=== PATIENT | male | born 2000 | race African-American/Black ===

== ENCOUNTER 2022-03-21 11:49 | Emergency (ER) | payer OTHER, SELFPAY ==
[2022-03-21 11:52] VITALS: BP 134/74; PULSE 86; RESP 16; TEMP 37.3; O2SAT 96
[2022-03-21 11:57] VITALS: BMI 21.9
--- NOTE | 2022-03-21 11:57 | ED_ITS ---
HPI - Weakness General: Chief complaint: Weakness Stated complaint: sore throat, body aches Time Seen by Provider: 03/21/22 11:57 History of Present Illness: Patient is in today for sore throat, body aches, chills. He reports that approximately 2 days ago he started having a sore thr oat and she has been feeling worse since that time. He reports that he has not been around any sick contacts that he knows of. He does have some nasal congestion and drainage. He has not checked his temperature but feels like he has been getting really hot and sweaty in the night. Associated symptoms: Reports chills and fever(s) (Feeling feverish has not sherry cked temp); Denies chest pain, dysuria, headache(s), nausea or vomiting Review of Systems Const: Reports: fever(s) (Feeling feverish has not checked temp), chills, body aches and fatigue Eyes: Denies: change in vision or blurry vision ENMT: Reports: throat pain, odynophagia, ear or mastoid pain (Ear pressure bilateral), nasal discharge and nasal congestion Card: Denies: chest pain or palpitations Resp: Denies: dyspnea, productive cough, non-productive cough or wheezing GI: Denies: abdominal pain, nausea or vomiting : Denies: flank pain, difficulty urinating, dysuria, urinary frequency or urinary urgency Musc: Reports: other (Body aches) Neuro: Denies: headache(s) Physical Exam HENMT: COMMON NORMALS: external ears normal, EAC's normal, TM's normal bilaterally and Normal external nose present FACE & SINUS: normal facial exam and sinuses nontender NOSE: Normal external nose present, Normal nares present, Abnormal mucous membranes and turbinates present erythematous and Nasal discharge present clear EXTERNAL EAR: Yes external ears normal EXTERNAL AUDITORY CANAL: EAC's normal TYMPANIC MEMBRANE: TM's normal bilaterally THROAT: posterior oropharynx abnormal erythema and postnasal drainage Eye: COMMON NORMALS: Equal, round and reactive pupils present, EOMs intact bilaterally and conjunctivae normal CONJUNCTIVA: Yes conjunctivae normal PUPIL: Yes Equal, round and reactive pupils present Lymph: LYMPHATIC: lymphadenopathy (Bilateral anterior cervical) Resp: COMMON NORMALS: normal respiratory effort and clear to auscultation bilaterally AUSCULTATION: clear to auscultation bilaterally Cardio: COMMON NORMALS: regular rate, regular rhythm, S1 normal heart sound present, S2 normal heart sound present and No murmurs present (Cardio) RATE: regular rate RHYTHM: regular rhythm HEART SOUNDS: S1 normal heart sound present and S2 normal heart sound present Course Vital Signs: Vital signs: Vital Signs Temperature 99.2 F 03/21/22 11:52 Pulse Rate 86 03/21/22 11:52 Respiratory Rate 16 03/21/22 11:52 Blood Pressure 134/74 03/21/22 11:52 Pulse Oximetry 96 03/21/22 11:52 Oxygen Delivery Me thod 03/21/22 11:52 MDM - Weakness Medical Decision Making Patient is in for sore throat, body aches, chills, feverish feeling x2 days. Patient wants minimal testing done, however he is agreeable to rapid strep. Rapid strep is negative. Culture is sent. I discussed with the patient that this is likely viral pharyngitis or viral upper respiratory infection. I did offer influenza and COVID testing and patient declined. I advised patient of conservative treatments to use at home and typical course of illness. Work/school note provided. All questions answered to patient satisfaction. Lab Data Laboratory Results Group A Strep Rapid Negative (Negative) 03/21/22 12:04 Discharge Plan Discharge Patient Disposition: Home Clinical Impression: Pharyngitis, acute, Upper respiratory infection Condition: Stable Discharge Orders: Discharge ED (Routine); Ordered 03/21/22 Ordered By: Corinne Montenegro Discharge Diet: Usual diet Discharge Activity: Increase activity as tolerated Patient Instructions: Pharyngitis (ED) Activity Restrictions/Additional Instructions: Off work and school today and tomorrow may return Friday as long as you are fever free for 24 hours. Use Flonase and Zyrtec at home to help with postnasal drainage. Warm salt water gargles. Follow-up with primary care provider as needed. Return to the emergency department for new or worsening symptoms, difficulty breathing, inability to control fever with Tylenol Motrin. Stand Alone Forms: Work/School Release Coding Level of Care Code ED Job Developer for Nadiya Fwholl[employer] Exam Detailed
[2022-03-21 12:17] LABS: Rapid Strep A Test Negative (Negative)
[2022-03-21 12:47] VITALS: PULSE 73; O2SAT 97
== END 2022-03-21 12:47 | disposition home or self-care (01) ==
PROVIDERS: Emergency Medicine; Emergency Provider Nurse Practitioner Family
DX: J06.9 Acute upper respiratory infection, unspecified (principal); J02.9 Acute pharyngitis, unspecified
CPT/HCPCS: 87081; 87880; 99283